=== PATIENT | male | born 1995 | race Caucasian/White ===

== ENCOUNTER 2018-10-04 07:07 | Emergency (ER) | payer BC ==
[~2018-10-04] VITALS: Ht 185.4 cm; Wt 88.6 kg
[2018-10-04] MEDS ORDERED: TORADOL PO (08:24)
[2018-10-04] MEDS ORDERED: AUGMENTIN500TAB PO (08:24)
[2018-10-04 08:30] VITALS: BP 140/80
== END 2018-10-04 08:42 | disposition home or self-care (01) | DRG 605 ==
LOC: ED 07:07
DX: S61.251A Open bite of left index finger without damage to nail, initial encounter (principal); W55.01XA Bitten by cat, initial encounter